=== PATIENT | male | born 1985 | race Caucasian/White ===

== ENCOUNTER → 2023-06-16 | Emergency (ER) | payer OTHER, SELFPAY ==
[~2023-06-16] MED LIST: ACETAMINOPHEN 500 MG TAB ONE; HYDROCODONE/APAP 10/325 TAB ONE; IBUPROFEN 200 MG TAB PO ONE; IBUPROFEN 400 MG TAB ONE; NA CHLORIDE 0.9% 1,000 ML ONE; PROMETHAZINE 25 MG TABLET ONE
--- OUTSIDE RECORDS SUMMARY | 2023-06-16 21:24 | XMS REPORT | Continuity of Care Document ---
Author Name Unknown Address [address] [place] [address] [facility] thconnect Address 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 Role Phone Pcp, Patient Does Not Have A Primary Care Physic atif Starr Sharp PA-C Attending Clinician [phone] Unknown, Attending Attending Clinician Unavailab STARR Strauss Attending Clinician Unavailable SMITH LAWSON Attending Clinician Unavailable Smith Aguilar Attending Clinician [phone] Doctor Unassigned, [place] Attending Clinician U MICHELET Hendrickson Attending Clinician Unavailable Payers Payer Name Policy Type Policy Number Effective Date Expirati on Date Source [employer] [id number] 2011 00:00:00 2020 00:00:00 Problems Condition Name Condition Details Condition Category Status Onset Date Resolution Date Last Treatment Date Treating Clinician Comments Source Attention deficit disorder of adult Attention deficit disorder of adult Disease Active 2017-06 00:00: 00 [facility] History of ADHD History of ADHD Disease Active 2015-06 00:00: 00 [facility] Allergies, Adverse Reactions, Alerts Allergy Name Allergy Type Status Severity Reaction(s) Onset Date Inactive Date Treating Clinician Comments Source Penicill in Propensi ty to adverse reaction s Active Itching 2015-06 00:00: 00 [facility] PENICILL IN DRUG INGREDI Active ITCHING 2015-06 00:00: 00 [facility] Social History Social Habit Start Date Stop Date Quantity Comments Source History of tobacco use Cigar Smoker [facility] Exposure to SARS-CoV-2 (event) 2022-11-04 00:00:00 2022-11-14 18:13:00 Not sure [facility] Tobacco use and exposure 2022-06-21 00:00:00 2022-06-21 00:00:00 Smokeless tobacco non-user [facility] Alcohol intake 2022-06-21 00:00:00 2022-06-21 00:00:00 0 /d [facility] Tobacco Comment 2022-06-21 00:00:00 2022-06-21 00:00:00 only when he plays golf [facility] Sex Assigned At 1985 00:00:00 1985 00:00:00 [facility] Smoking Status Start Date Stop Date Source Tobacco smoking consumption unknown [facility] Occasional tobacco smoker 2022-06-21 00:00:00 [facility] Medications Ordered Medication Name Filled Medication Name Start Date Stop Date Current Medication? Ordering Clinician Indication Dosage Frequency Signature (SIG) Comments Components Source bromphenira mine-pseudo ephedrine-D M (BROMFED DM) 2-30-10 mg/5 mL syrup 11-14 00:00: 00 Yes [id number] 5mL Take 5 mL by mouth 3 (three) times daily as needed for Cold symptoms. [facility] dexamethaso ne (DECADRON) injection 10 mg 2021-06 20:02: 00 06-21 20:07 :00 No [id number] 10mg [facility] dexamethaso ne (DECADRON) injection 10 mg 2021-06 20:02: 00 06-21 20:07 :00 No [id number] 10mg 10 mg, Intramuscu lar, ONCE, 1 dose, On 06/21/22 at 1415, Routine [facility] No known medications 2021-06 14:01: 00 No No known medication s [facility] doxycycline hyclate 100 mg tablet 2021-06 00:00: 00 07-02 05:59 :00 No [id number] 100mg Take 1 tablet by mouth in the morning and 1 tablet in the evening. Do all this for 10 days. [facility] lisdexamfet amine (VYVANSE) 30 mg capsule 2017-06 00:00: 00 Yes [id number] 30mg Take 1 capsule by mouth every morning. [facility] lisdexamfet amine (VYVANSE) 30 mg capsule 2017-06 00:00: 00 Yes [id number] 30mg Take 1 capsule by mouth every morning. [facility] lisdexamfet amine (VYVANSE) 30 mg capsule 2017-06 00:00: 00 Yes [id number] 30mg Take 1 capsule by mouth every morning. [facility] butalbital- acetaminoph en-caff 50-325-40 mg tablet 2017-06 00:00: 00 Yes [id number] 1{tbl} Take 1 tablet by mouth every 4 (four) hours as needed for Headache. [facility] ondansetron (ZOFRAN) 8 mg tablet 2017-06 00:00: 00 Yes [id number] 8mg Take 1 tablet by mouth every 8 (eight) hours as needed for Nausea and Vomiting (N/V). [facility] butalbital- acetaminoph en-caff 50-325-40 mg tablet 2017-06 00:00: 00 Yes [id number] 1{tbl} Take 1 tablet by mouth every 4 (four) hours as needed for Headache. [facility] ondansetron (ZOFRAN) 8 mg tablet 2017-06 00:00: 00 Yes [id number] 8mg Take 1 tablet by mouth every 8 (eight) hours as needed for Nausea and Vomiting (N/V). [facility] butalbital- acetaminoph en-caff 50-325-40 mg tablet 2017-06 00:00: 00 Yes [id number] 1{tbl} Take 1 tablet by mouth every 4 (four) hours as needed for Headache. [facility] ondansetron (ZOFRAN) 8 mg tablet 2017-06 00:00: 00 Yes [id number] 8mg Take 1 tablet by mouth every 8 (eight) hours as needed for Nausea and Vomiting (N/V). [facility] Vital Signs Vital Name Observation Time Observation Value Comments S ource Systolic blood pressure 2022-11-14 23:20:00 126 mm[Hg] [facility] Diastolic blood pressure 2022-11-14 23:20:00 79 mm[Hg] [facility] Heart rate 2022-11-14 23:20:00 92 /min [facility] Body temperature 2022-11-14 23:20:00 36.67 [place] [facility] Respiratory rate 2022-11-14 23:20:00 16 /min [facility] Body height 2022-11-14 23:20:00 177.8 cm [facility] Body weight 2022-11-14 23:20:00 127.143 kg [facility] BMI 2022-11-14 23:20:00 40.22 kg/m2 [facility] Oxygen saturation in Arterial blood by Pulse oximetry 2022-11-14 23:20:00 96 /min [facility] Systolic blood pressure 2022-06-21 19:54:00 130 mm[Hg] [facility] Diastolic blood pressure 2022-06-21 19:54:00 79 mm[Hg] [facility] Heart rate 2022-06-21 19:53:00 93 /min [facility] Body temperature 2022-06-21 19:53:00 36.5 [place] [facility] Respiratory rate 2022-06-21 19:53:00 20 /min [facility] Body height 2022-06-21 19:53:00 177.8 cm [facility] Body weight 2022-06-21 19:53:00 125.147 kg [facility] BMI 2022-06-21 19:53:00 39.59 kg/m2 [facility] Oxygen saturation in Arterial blood by Pulse oximetry 2022-06-21 19:53:00 96 /min [facility] Procedures Procedure Date / Time Performed Performing Clinician Source CONSENT/REFUSAL FOR DIAGNOSIS AND TREATMENT 2022-06-21 19:47:55 Doctor Unassigned, [place] [facility] PATIENT FINANCIAL RESPONSIBILITY - ALL FORMS Doctor Unassigned, [place] [facility] Encounters Start Date/Time End Date/Time Encounter Type Admission Type Attending Clinicians Care Facility Care Department Encounter ID Source 2022-11-14 18:20:00 2022-11-14 18:40:00 Urgent Care Starr Sharp Unknown, Attending [facility] [id number] [facility] 2022-11-14 18:20:00 2022-11-14 18:20:00 Outpatient STARR JACOBSEN [facility] [id number] [facility] 2022-06-21 14:00:00 2022-06-21 14:07:06 Outpatient R SMITH LAWSON [facility] [id number] [facility] 2022-06-21 14:00:00 2022-06-21 14:07:06 Urgent Care Smith Lawson Unknown, Attending [facility] [id number] [facility] 2022-06-21 00:00:00 2022-06-21 00:00:00 Orders Only Doctor Unassigned, [place] [facility] [id number] [facility] 2020-07-23 11:50:00 2020-07-23 11:58:11 Outpatient MICHELET WALDRON [facility] [id number] [facility] 2020-07-23 11:50:00 2020-07-23 11:50:00 Outpatient MICHELET WALDRON [facility] [id number] [facility] 2020-06-25 13:20:00 2020-06-25 13:20:00 Outpatient MICHELET WALDRON [facility] [id number] [facility] 2020-06-25 13:20:00 2020-06-25 13:20:00 Outpatient MICHELET WALDRON [facility] [id number] [facility] 2020-06-25 13:20:00 2020-06-25 13:20:00 Outpatient MICHELET WALDRON [facility] [id number] [facility] Orders Only Doctor Unassigned, [place] [facility] [id number] [facility]
--- NOTE | 2023-06-16 22:05 | RAD REPORT ---
EXAM DESCRIPTION: RAD - Chest Pa And Lat (2 Views) - 06/16/2023 9:53 pm CLINICAL HISTORY: Cough;Congestion Chest pain. COMPARISON: <Comparisons> FINDINGS: Interstitial markings are prominent which can be seen in mild interstitial edema or viral bronchitis. The heart is upper limit normal in size. No displaced fractures.
[2023-06-17 00:27] LABS: Absolute Lymphocytes (CBC) 0.4 K/uL (0.7-4.9); Hematocrit 44.1 % (39.6-49.0); Lymphocytes % 6.1 % (15.3-44.8); MCV 85.4 fL (80-100); MPV 9.4 fL (7.6-11.3); Platelets 149 thou/uL (152-406); RBC Red Blood Cell Count 5.16 M/uL (4.33-5.43)
[2023-06-17 00:47] LABS: Potassium 3.6 mEq/L (3.5-5.1); Troponin High Sensitivity 12.8 pg/mL (<58.9)
--- NOTE | 2023-06-17 02:39 | ER ---
Nurse's Notes [facility] Name: Matt Jauregui Age: 37 yrs Sex: Male : 1985 Arrival Date: 06/16/2023 Time: 21:20 Bed 18 Private MD: Diagnosis: Acute bronchitis, unspecified;Headache;Acute viral illness Presentation: 06/16 22:03 Chief complaint: Patient states: Cough and headache onset yesterday. Pt states that the cm10 headache happens when he coughs. Coronavirus screen: Vaccine status: Patient reports receiving the 2nd dose of the covid vaccine. Client denies travel out of the [place] in the last 14 days. Ebola Screen: Patient denies travel to an Ebola-affected area in the 21 days before illness onset. No symptoms or risks identified at this time. Resp Distress? No respiratory distress is noted at this time. Initial Sepsis Screen: Does the patient meet any 2 criteria? Temp <36.0*C (96.8*F)) or > 38.3*C (100.9*F). Does the patient have a suspected source of infection? No. Patient's initial sepsis screen is negative. Risk Assessment: Do you want to hurt yourself or someone else? Patient reports no desire to harm self or others. Onset of symptoms was June 16, 2023. 22:03 Method Of Arrival: Ambulatory 10 22:03 Acuity: ULICES 4 cm10 Historical: - Allergies: 22:05 PENICILLINS; cm10 - Home Meds: 22:05 None [Active]; cm10 - PMHx: 22:05 None; cm10 - PSHx: 22:05 None; cm10 - Immunization history:: Adult Immunizations unknown. - Social history:: Smoking status: Patient denies any tobacco usage or history of. Screenin:54 [facility] ED Fall Risk Assessment (Adult) History of falling in the last 3 months, jw7 including since admission No falls in past 3 months (0 pts) Score/Fall Risk Level 0 - 2 = Low Risk Oriented to surroundings, Maintained a safe environment. Abuse screen: Denies threats or abuse. Denies injuries from another. Nutritional screening: No deficits noted. Tuberculosis screening: No symptoms or risk factors identified. Assessment: 23:52 General: Appears in no apparent distress. uncomfortable, Behavior is calm, cooperative. jw7 Pain: Complains of pain in Head Pain does not radiate. Pain currently is 5 out of 10 on a pain scale. Quality of pain is described as pressure, Pain began suddenly, Is continuous. Neuro: Merritt Agitation-Sedation Scale (RASS): 0 - Alert and Calm Level of Consciousness is awake, alert, obeys commands, Oriented to person, place, time, situation. Cardiovascular: Capillary refill < 3 seconds Clubbing of nail beds is absent JVD is absent Patient's skin is warm and dry. Respiratory: Airway is patent Trachea midline Respiratory effort is even, unlabored, Respiratory pattern is regular, symmetrical. GI: No deficits noted. No signs and/or symptoms were reported involving the gastrointestinal system. : No deficits noted. No signs and/or symptoms were reported regarding the genitourinary system. EENT: No deficits noted. No signs and/or symptoms were reported regarding the EENT system. Derm: Skin is intact, is healthy with good turgor, Skin is dry, Skin is normal, Skin temperature is warm. Musculoskeletal: Circulation, motion, and sensation intact. Range of motion: intact in all extremities. 06/17 01:00 Reassessment: Patient appears in no apparent distress at this time. No changes from jw7 previously documented assessment. Patient and/or family updated on plan of care and expected duration. Pain level reassessed. Patient is alert, oriented x 3, equal unlabored respirations, skin warm/dry/pink. 02:30 Reassessment: Patient appears in no apparent distress at this time. Patient and/or jw7 family updated on plan of care and expected duration. Pain level reassessed. Patient is alert, oriented x 3, equal unlabored respirations, skin warm/dry/pink. Patient states feeling better. Patient states symptoms have improved. Vital Signs: 06/16 22:03 BP 131 / 87; Pulse 133; Resp 18; Temp 101(O); Pulse Ox 92% on R/A; Weight 131.54 kg cm10 (R); Height 5 ft. 10 in. (R); Pain 12/06; 23:44 BP 153 / 76; Pulse 131; Resp 17 S; Temp 100(O); Pulse Ox 93% on R/A; cm10 23:57 BP 144 / 85; Pulse 128; Resp 20 S; Pulse Ox 95% on R/A; jw7 06/17 01:30 BP 154 / 91; Pulse 109; Resp 19 S; Pulse Ox 94% on R/A; jw7 02:30 BP 136 / 48; Pulse 121; Resp 20 S; Pulse Ox 94% on R/A; jw7 06/16 22:03 Body Mass Index 41.61 (131.54 kg, 177.8 cm) cm10 06/16 22:03 Pain Scale: Adult cm10 ED Course: 06/16 21:26 Patient arrived in ED. gm2 21:30 Shama Harris FNP-C is PHCP. kb 21:30 Barry Estes MD is Attending Physician. kb 21:46 Patient's name was called from ER lobby. No response. nj1 21:55 Chest Pa And Lat (2 Views) XRAY In Process Unspecified. EDMS 22:05 Triage completed. cm10 23:47 Miley Villalobos, RN is Primary Nurse. jw7 23:54 Arm band placed on. jw7 23:54 Patient has correct armband on for positive identification. Bed in low position. Call jw7 light in reach. 06/17 00:04 CBC with Diff Sent. jw7 00:04 Basic Metabolic Panel Sent. jw7 00:04 D-Dimer Sent. jw7 00:04 BNP Sent. jw7 00:04 Troponin High Sensitivity Sent. jw7 01:28 CT Chest For PE Angio In Process Unspecified. EDMS 02:37 Osmar Pina DO is Referral Physician. sp4 02:43 Provided Education on: discharge instructions. jw7 02:43 No provider procedures requiring assistance completed. IV discontinued, intact, jw7 bleeding controlled, No redness/swelling at site. Pressure dressing applied. Administered Medications: 06/16 22:06 Drug: Acetaminophen PO 1000 mg PO once Route: PO; cm10 06/17 01:58 Follow up: Response: No adverse reaction jw7 01:58 Drug: Ibuprofen PO 600 mg PO once Route: PO; jw7 02:43 Follow up: Response: No adverse reaction; Marked relief of symptoms jw7 01:58 Drug: [place] PO 10 mg-325 mg 1 tabs PO once Route: PO; jw7 02:42 Follow up: Response: No adverse reaction; Marked relief of symptoms jw7 01:58 Drug: Promethazine PO 25 mg PO once Route: PO; jw7 02:42 Follow up: Response: No adverse reaction; Marked relief of symptoms jw7 01:58 Drug: NS 0.9% IV 1000 ml IV at 1 bolus Per protocol; 1000 mL bolus Route: IV; Rate: 1 jw7 bolus; Site: right antecubital; 02:42 Follow up: Response: No adverse reaction; IV Status: Completed infusion; IV Intake: jw7 1000ml Medication: 02:43 VIS not applicable for this client. jw7 Intake: 02:42 IV: 1000ml; Total: 1000ml. jw7 Outcome: 02:38 Discharge ordered by . sp4 02:52 Discharged to home ambulatory, jw7 02:52 Condition: stable 02:52 Discharge instructions given to patient, Instructed on discharge instructions, follow up and referral plans. medication usage, Demonstrated understanding of instructions, follow-up care, medications, Prescriptions given X 2, 02:54 Patient left the ED. jw7 Signatures: Dispatcher [employer] EDMS Shama Harris, PIPELINE OPERATOR-C PIPELINE OPERATOR-CkMiley Shine, RN RN jw7 Barry Estes MD MD sp4 Jasmina Mclaughlin RN RN nj1 Zulma Cisse, RN RN cm10 Zara Chavis 2
--- NOTE | 2023-06-17 02:39 | EDPHYS ---
Physician Documentation [facility] Name: Matt Jauregui Age: 37 yrs Sex: Male : 1985 Arrival Date: 06/16/2023 Time: 21:20 Bed 18 Private MD: ED Physician Barry Estes HPI: 06/17 00:49 This 37 yrs old Male presents to ER via Ambulatory with complaints of Cough, kb Congestion, Headache. 00:49 Patient is a 37-year-old male with no medical history who presents for cough, headache kb and shortness of breath that started last night. 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 States he was feeling a little sick before he went to the call last night. States his checked his pulse ox prior to arrival and it was 89% but it went up after some deep breaths.. Historical: - Allergies: 06/16 22:05 PENICILLINS; cm10 - Home Meds: 22:05 None [Active]; cm10 - PMHx: 22:05 None; cm10 - PSHx: 22:05 None; cm10 - Immunization history:: Adult Immunizations unknown. - Social history:: Smoking status: Patient denies any tobacco usage or history of. ROS: 06/17 00:48 Constitutional: Negative for fever, chills, and weight loss, kb Respiratory: Positive for cough, shortness of breath, Neuro: Positive for headache, All other systems are negative, Exam: 00:48 Constitutional: This is a well developed, well nourished patient who is awake, alert, kb and in no acute distress. Head/Face: Normocephalic, atraumatic. ENT: Moist Mucous membranes Respiratory: Respirations even and unlabored. No increased work of breathing. Talking in full sentences Abdomen/GI: Soft, non-tender. No distention Skin: Warm, dry with normal turgor. Normal color. MS/ Extremity: Pulses equal, no cyanosis. Neurovascular intact. Full, normal range of motion. Neuro: Awake and alert, GCS 15, oriented to person, place, time, and situation. Moves all extremities. Normal gait. 00:48 Cardiovascular: Rate: tachycardic, kb Vital Signs: 06/16 22:03 BP 131 / 87; Pulse 133; Resp 18; Temp 101(O); Pulse Ox 92% on R/A; Weight 131.54 kg cm10 (R); Height 5 ft. 10 in. (R); Pain 6/10; 23:44 BP 153 / 76; Pulse 131; Resp 17 S; Temp 100(O); Pulse Ox 93% on R/A; cm10 23:57 BP 144 / 85; Pulse 128; Resp 20 S; Pulse Ox 95% on R/A; jw7 06/17 01:30 BP 154 / 91; Pulse 109; Resp 19 S; Pulse Ox 94% on R/A; jw7 02:30 BP 136 / 48; Pulse 121; Resp 20 S; Pulse Ox 94% on R/A; jw7 06/16 22:03 Body Mass Index 41.61 (131.54 kg, 177.8 cm) cm10 06/16 22:03 Pain Scale: Adult cm10 MDM: 06/16 21:30 Patient medically screened. kb 06/17 00:49 Differential Diagnosis: Other flu, covid, bronchitis, pneumonia, PE. Data reviewed: kb vital signs, nurses notes. 01:10 Transition of care: After a detail discussion of the patient's case, care is kb transferred to Barry Estes MD. 02:28 ED course: CT chest - TECHNIQUE: Contiguous axial images obtained through the chest sp4 during angiographic phase following the uneventful administration of IV contrast. Sagittal and coronal reformatted images were provided. 3-D MIP reformatted images were provided. This exam was performed according to our departmental dose-optimization program, which includes automated exposure control, adjustment of the mA and/or kV according to patient size and/or use of iterative reconstruction technique. COMPARISON: No prior exams provided for comparison. FINDINGS: Diagnostic quality: There is adequate opacification of the pulmonary arterial tree. Lungs: No focal consolidation. Airways are patent. Pleura: No effusion. No pneumothorax. Heart and pericardium: The heart is normal in size. No pericardial effusion. Mediastinum and alis: No pathologically enlarged lymph nodes. Lower neck and chest wall: Unremarkable Vessels: No pulmonary arterial filling defects. Suboptimal evaluation of subsegmental pulmonary arteries secondary to significant respiratory motion artifact No thoracic aortic aneurysm. Upper abdomen: Diffuse fatty infiltration of the liver. Small gallstones. Bones: Unremarkable IMPRESSION: 1. No pulmonary embolic disease. Suboptimal evaluation of subsegmental pulmonary arteries secondary to significant respiratory motion artifact. 2. No focal consolidation. 3. Diffuse fatty infiltration of the liver. 4. Cholelithiasis. Electronically signed by: Jos Valerio MD 06/17/2023 02:20 AM. 02:36 Consideration of Admission/Observation Escalation of care including sp4 admission/observation considered. ED course: Patient was evaluated his oxygen level is 95% patient does have some tachycardia at 122 to 110. ED course: Patient reported concurrent cough and headache. CT chest is unremarkable. No sign of parenchymal lung disease. We will go ahead and provide albuterol as needed cough via Ventolin inhaler also as needed dextromethorphan for cough and also Tylenol and ibuprofen will be advised for headaches. . 06/16 21:40 Order name: COVID-19 SARS RT PCR; Complete Time: 23:05 kb 06/16 21:40 Order name: Flu; Complete Time: 23:07 kb 06/16 23:48 Order name: CBC with Diff; Complete Time: 00:35 kb 06/16 23:48 Order name: Basic Metabolic Panel; Complete Time: 00:48 kb 06/16 23:48 Order name: D-Dimer; Complete Time: 00:31 kb 06/16 23:48 Order name: BNP; Complete Time: 00:48 kb 06/16 23:48 Order name: Troponin High Sensitivity; Complete Time: 00:48 kb 06/16 21:40 Order name: Chest Pa And Lat (2 Views) XRAY; Complete Time: 22:07 kb 06/17 00:31 Order name: CT Chest For PE Angio kb 06/16 23:32 Order name: Vital Signs; Complete Time: 00:04 kb 06/16 23:48 Order name: IV Start; Complete Time: 00:04 kb Administered Medications: 06/16 22:06 Drug: Acetaminophen PO 1000 mg PO once Route: PO; cm10 06/17 01:58 Follow up: Response: No adverse reaction jw7 01:58 Drug: Ibuprofen PO 600 mg PO once Route: PO; jw7 02:43 Follow up: Response: No adverse reaction; Marked relief of symptoms jw7 01:58 Drug: [place] PO 10 mg-325 mg 1 tabs PO once Route: PO; jw7 02:42 Follow up: Response: No adverse reaction; Marked relief of symptoms jw7 :58 Drug: Promethazine PO 25 mg PO once Route: PO; jw7 02:42 Follow up: Response: No adverse reaction; Marked relief of symptoms jw12 27:58 Drug: NS 0.9% IV 1000 ml IV at 1 bolus Per protocol; 1000 mL bolus Route: IV; Rate: 1 jw7 bolus; Site: right antecubital; 02:42 Follow up: Response: No adverse reaction; IV Status: Completed infusion; IV Intake: jw7 1000ml Disposition: 02:06 Co-signature as Attending Physician, Barry Estes MD I agree with the assessment sp4 and plan of care. I reviewed the patient's care provided by Advanced Practice Provider \T\ agree w/ the diagnosis \T\ care plan. I personally saw the pt \T\ performed a substantive portion of the visit, incldng all aspects of the (History/Exam/Medical Decision Making). Disposition Summary: 06/17/23 02:38 Discharge Ordered Problem: new sp4 Symptoms: have improved sp4 Condition: Stable sp4 Diagnosis - Acute bronchitis, unspecified sp4 - Headache sp4 - Acute viral illness sp4 Followup: sp4 - With: Osmar Pina DO - When: 7 - 10 days - Reason: Recheck today's complaints Discharge Instructions: - Discharge Summary Sheet sp4 - Acute Bronchitis, Adult, [id number] sp4 Forms: - Work release form lg3 - Patient Portal Instructions sp4 Prescriptions: - Ventolin HFA 90 mcg/actuation Inhalation HFA Aerosol Inhaler - inhale 2 inhalation INHALATION route every 4 hours Dispense with Spacer, Take sp4 2 puffs every 4 hours as needed for cough; 1 unit; Refills: 0, Product Selection Permitted - dextromethorphan-guaifenesin 10-200 mg Oral capsule - take 2 capsule ORAL route every 6 hours PRN cough; 60 capsule; Refills: 0, sp4 Product Selection Permitted Signatures: Dispatcher [employer] Shama Joseph FNP-C FNP-Ckb Waits, Jodi, RN RN jwBarry Nelson MD MD sp4 Zulma Cisse RN RN cm10 Corrections: (The following items were deleted from the chart) 00:49 00:48 Constitutional: This is a well developed, well nourished patient who is awake, kb alert, and in no acute distress. Head/Face: Normocephalic, atraumatic. ENT: Moist Mucous membranes Cardiovascular: Regular rate Respiratory: Respirations even and unlabored. No increased work of breathing. Talking in full sentences Abdomen/GI: Soft, non-tender. No distention Skin: Warm, dry with normal turgor. Normal color. MS/ Extremity: Pulses equal, no cyanosis. Neurovascular intact. Full, normal range of motion. Neuro: Awake and alert, GCS 15, oriented to person, place, time, and situation. Moves all extremities. Normal gait. kb 00:50 00:49 Patient is a 37-year-old male with no medical history who presents for cough, kb headache and shortness of breath that started last night. 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 States he was feeling a little sick before he went to the call last night.. kb
[2023-06-17 05:44] VITALS: BP 136/48; TEMP 100; O2SAT 94
--- NOTE | 2023-06-17 12:20 | RAD REPORT ---
EXAM DESCRIPTION: Chest For Pe Angio CLINICAL HISTORY: DYSPNEA TECHNIQUE: Contiguous axial images obtained through the chest during angiographic phase following th e uneventful administration of IV contrast. Sagittal and coronal reformatted images were provided. 3- D MIP reformatted images were provided. This exam was performed according to our departmental dose-optimization program, which includes autom ated exposure control, adjustment of the mA and/or kV according to patient size and/or use of iterati ve reconstruction technique. COMPARISON: No prior exams provided for comparison. FINDINGS: Diagnostic quality: There is adequate opacification of the pulmonary arterial tree. Lungs: No focal consolidation. Airways are patent. Pleura: No effusion. No pneumothorax. Heart and pericardium: The heart is normal in size. No pericardial effusion. Mediastinum and alis: No pathologically enlarged lymph nodes. Lower neck and chest wall: Unremarkable Vessels: No pulmonary arterial filling defects. Suboptimal evaluation of subsegmental pulmonary arter ies secondary to significant respiratory motion artifact No thoracic aortic aneurysm. Upper abdomen: Diffuse fatty infiltration of the liver. Small gallstones. Bones: Unremarkable IMPRESSION: 1. No pulmonary embolic disease. Suboptimal evaluation of subsegmental pulmonary arter ies secondary to significant respiratory motion artifact. 2. No focal consolidation. 3. Diffuse fatty infiltration of the liver. 4. Cholelithiasis. Electronically signed by: Jos Valerio MD 06/17/2023 02:20 AM MAT SEWER Due to temporary technical issues with the PACS/Fluency reporting system, reports are being signed by the in house radiologists without review as a courtesy to insure prompt reporting. The interpreting radiologist is fully responsible for the content of the report.
== END ==
LOC: ER 21:20
DX: J20.9 Acute bronchitis, unspecified (principal); B34.9 Viral infection, unspecified; Z11.52 Encounter for screening for COVID-19
CPT/HCPCS: 36415; 71046; 71275; 87635; 87804; 96360; 99284; Q9967

== ENCOUNTER 2024-05-05 15:27 | Emergency (ER) | payer SELFPAY ==
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
[2024-05-05 17:49] VITALS: BP 130/86; TEMP 98.1; O2SAT 97
== END 2024-05-05 17:30 | disposition home or self-care (01) ==
LOC: ER 15:27
DX: L03.312 Cellulitis of back [any part except buttock and flank] (principal)
CPT/HCPCS: 99283